=== PATIENT | female | born 1975 | race Caucasian/White ===

== ENCOUNTER 2024-01-26 14:45 | Outpatient (CLI) | payer BC, SELFPAY ==
--- NOTE | ~2024-01-26 | US_ITS ---
EXAMINATION: US pelvic complete w TV DATE: 01/26/2024 16:13 INDICATION: Menorrhagia Comparison:No prior studies for comparison. TECHNIQUE: Multiple transabdominal and endovaginal sonographic images of the pelvis performed. FINDINGS: The uterus measures 10.9 x 4.7 x 6 cm. The endometrial complex measures 23 mm. The right ovary is not visualized. Left ovary measures 3.1 x 3 x 2.5 cm. There is a left ovarian cyst measuring 1.9 cm. There is no free fluid in the pelvis. There are no abnormal masses seen on either side. IMPRESSION: 1. Thickened endometrium measuring 2.3 cm. 2: Left ovarian cyst measuring 1.9 cm. Reviewed, dictated and finalized at location B.
== END 2024-01-26 14:46 ==
PROVIDERS: PCP Obstetrics & Gynecology Gynecology; Visit Provider Obstetrics & Gynecology Gynecology
DX: R93.89 Abnormal findings on diagnostic imaging of other specified body structures (principal); N83.292 Other ovarian cyst, left side; N92.1 Excessive and frequent menstruation with irregular cycle
CPT/HCPCS: 76830; 76856

== ENCOUNTER 2024-12-23 14:03 | Outpatient (CLI) | payer BC, SELFPAY ==
--- NOTE | 2024-12-23 14:13 | ECG_ITS ---
Test Date: 2024-12-23 14:19:50 Measurements Intervals [place] Rate: 62 P: -7 MA: 124 QRS: 48 QRSD: 89 T: 37 QT: 446 QTc: 453 Interpretive Statements SINUS RHYTHM No previous ECG available for comparison Electronically Signed On 12-23-2024 19:14:53 CDT by Dariela Kline
--- OUTSIDE RECORDS SUMMARY | 2024-12-24 14:14 | XMS_ITS | Clinical Summary ---
Author Organization [facility] [employer] Address [address] [place] [address] Care Team Providers Care Stencil Inspector Name Role Phone Unavailable Primary Care Provider Unavailabl e Source Comments [facility] [employer]non-owned Affiliates and Associated Physician Practices is amultiple site organization consisting of ambulatory clinics and hospital sitesin [place], [place], [place] and [place]. This disclosure is being madepursuant to the Care Everywhere program and may not contain all information available regarding this patient. Last updated 18.[facility] [employer] Allergies Active Allergy Reactions Criticality Noted Date Comments [facility]:Acetaminophen+Oxycodone+Tartrazine Rash Medium 02/06/2016 Oxycodone-Acetaminophen Urticaria Medium 07/18/2020 Medications * Be aware that medications may not be up to date on this document. Alwaysverify current medications with the patient. multivitamin (OPURITY) CHEW tablet every 24 hours Active ibuprofen (MOTRIN) 800 MG tablet Take 1 tablet by mouth 2 times daily 60 tablet 5 07/18/2020 Active ibuprofen (MOTRIN) 800 MG tablet Take 1 (one) tablet by mouth every 6 hours as needed for Pain 90 tablet 1 07/24/2021 Active Active Problems Problem Noted Date Diagnosed Date Closed displaced pilon fracture of right tibia 0 03/18/2017 Overview (11/23/2017): ICD-10 update Other fracture of right lowe r leg, initial encounter for closed fracture 01/29/2017 Vitamin D deficiency 01/05/2017 Traumatic hemothorax 04/01/2016 Overview (11/23/2017): Left Acute pain due to trauma 02/07/2016 Multiple injuries 02/07/2016 Hypokalemia 02/07/2016 Hypomagnesemia 02/07/2016 Contusion of one lung 02/06/2016 Open wound of neck 02/06/2016 Cyst of right ovary 02/06/2016 Hemothorax 02/06/2016 Social History Tobacco Use Types Packs/Day Years Used Date Smoking Tobacco: Former Cigarettes Q uit: 09/07/2015 Smokeless Tobacco: Never Alcohol Use Standard Drinks/Week Comments Yes 0 (1 standard drink = 0.6 oz pur e alcohol) Comments No Sex and Gender Information Value Date Recorded Sex Assigned at Not on file Legal Sex Female 5:13 PM SECURITY SUPERVISOR Gender Identity Not on file Sexual Orientation Not on file Last Filed Vital Signs Vital Sign Reading Time Taken Comments Blood Pressure 114/74 01/31/2017 7:29 AM CDT Pulse 80 01/31/2017 7:29 AM CDT Temperature 36.6 C (97.8 F) 01/31/2017 7:29 AM CDT Respiratory Rate 18 01/31/2017 7:29 AM CDT Oxygen Saturation 99% 01/31/2017 7:29 AM CDT Inhaled Oxygen Concentration - - Weight 111.1 kg (245 lb) 07/24/2021 11:12 AM SECURITY SUPERVISOR Height 160 cm (5' 3 ) 07/24/2021 11:12 AM SECURITY SUPERVISOR Body Mass Index 43.4 07/24/2021 11:12 AM SECURITY SUPERVISOR Plan of Treatment Health Maintenance Due Date Last Done Comments COLOGUARD (AGES 45-75) - COLON CA SCREENING 1977 COLON MONITORING 1977 COLONOSCOPY - COLON CA SCREENING 1977 CT COLONOGRAPHY - COLON CA SCREENING 1977 Colorectal Cancer Screening 1977 FIT - COLON CA SCREENING 1977 FLEX SIG - COLON CA SCREENING 1977 LIPID TESTING 1977 MAMMOGRAM 1977 PAP SMEAR 1977 HIV SCREENING 1992 HEPATITIS C SCREENING 11/07/1995 DTAP/TDAP/TD VACCINES (1 - Tdap) 1996 HEPATITIS B VACCINE (1 of 3 - 19+ 3-dose series) 1996 SCREENING FOR DIABETES 07/24/2021 7, 01/30/2017, 01/29/2017, Additional history exists COVID-19 VACCINE ( season) 2024 10/25/2020, 09/27/2020 DEPRESSION SCREENING 08/24/2024 INFLUENZA VACCINE (Season Ended) 2025 05/12/2016 ZOSTER VACCINE (1 of 2) 11/12/2027 HIB VACCINE Aged Out No longer eligi ble based on patient's age to complete this topic HPV VACCINE Aged Out No longer eligi ble based on patient's age to complete this topic MENINGOCOCCAL (Group B) VACCINE SHARED DECISION-MAKING Aged Out No longer eligible based on patient's age to complete this topic MENINGOCOCCAL GROUPS A/C/Y/W VACCINE Aged Out No longer eligible based on patient's age to complete this topic PNEUMOCOCCAL VACCINE Aged Out No long er eligible based on patient's age to complete this topic Procedures Procedure Name Priority Date/Time Associated Diagnosis Comments BASIC METABOLIC PANEL (CALCIUM TOTAL) Routine 01/31/2017 4:19 AM CDT from Last 3 Months or Most Recently Relevant to Health Maintenance Results * BASIC METABOLIC PANEL (CALCIUM TOTAL) (01/31/2017 4:19 AM CDT) BUN 11 7 - 26 mg/dL [facility] Creatinine 0.6 0.6 - 1.2 mg/dL [facility] Sodium 138 136 - 145 mmol/L [facility] Potassium 4.0 3.5 - 4.5 mmol/L [facility] Chloride 101 98 - 107 mmol/L [facility] CO2 27 22 - 29 mmol/L [facility] Glucose 94 70 - 115 mg/dL [facility] Calcium 8.5 8.4 - 10.2 mg/dL [facility] Anion Gap 14 8 - 18 [facility] BUN/Creatinine Ratio 18 7 - 23 [facility] Osmolality Calculated 285 270 - 300 mOsm/kg [facility] eGFR >60 >60 mL/min/1.7 3 m2 [facility] Blood specimen (specimen) BLOOD SPECIMEN / Unknown 01/31/2017 4:19 AM CDT 01/31/2017 4:43 AM CDT us Johnnie Montes De Oca MD LAB - CHEMISTRY ORDERABLES Yoly carmina Result [facility] [address] [place] [address], [facility] [phone] from Last 3 Months or Most Recently Relevant to Health Maintenance Insurance [facility] Address: [place] [address] MEDICAID - OUT OF STATE ANTH
== END 2024-12-23 14:04 | disposition home or self-care (01) ==
LOC: ANHCARD 14:05
PROVIDERS: Visit Provider Anesthesiology
DX: F17.210 Nicotine dependence, cigarettes, uncomplicated (principal); Z01.818 Encounter for other preprocedural examination
CPT/HCPCS: 93005

== ENCOUNTER 2024-12-24 10:43 | Outpatient (CLI) | payer BC, SELFPAY ==
[2024-12-24 11:13] LABS: Hematocrit 22.1 % (37.0-47.0)
[2024-12-24 11:39] LABS: Hemoglobin 6.1 g/dL (12.0-15.0)
--- OUTSIDE RECORDS SUMMARY | 2024-12-24 16:22 | XMS_ITS | Clinical Summary ---
Author Organization [facility] [employer] Address [address] [place] [address] Care Team Providers Care Olive Grower Name Role Phone Unavailable Primary Care Provider Unavailabl e Source Comments [facility] [employer],non-owned Affiliates and Associated Physician Practices is amultiple site organization consisting of ambulatory clinics and hospital sitesin [place], [place], [place] and [place]. This disclosure is being madepursuant to the Care Everywhere program and may not contain all information available regarding this patient. Last updated 18.[facility] [employer] Allergies Active Allergy Reactions Criticality Noted Date Comments [facility]:Acetaminophen+Oxycodone+Tartrazine Rash Medium 02/06/2016 Oxycodone-Acetaminophen Urticaria Medium 07/18/2020 [...] on file Legal Sex Female 5:13 PM AQUA AMMONIA OPERATOR Gender Identity Not on file Sexual Orientation [...] 111.1 kg (245 lb) 07/24/2021 11:12 AM AQUA AMMONIA OPERATOR Height 160 cm (5' 3 ) 07/24/2021 11:12 AM AQUA AMMONIA OPERATOR Body Mass Index 43.4 07/24/2021 11:12 AM AQUA AMMONIA OPERATOR Plan of Treatment Health Maintenance Due Date [...] CDT) BUN 11 7 - 26 mg/dL [facility] Creatinine 0.6 0.6 - 1.2 mg/dL [facility] Sodium 138 136 - 145 mmol/L [facility] Potassium 4.0 3.5 - 4.5 mmol/L [facility] Chloride 101 98 - 107 mmol/L [facility] CO2 27 22 - 29 mmol/L [facility] Glucose 94 70 - 115 mg/dL [facility] Calcium 8.5 8.4 - 10.2 mg/dL [facility] Anion Gap 14 8 - 18 [facility] BUN/Creatinine Ratio 18 7 - 23 [facility] Osmolality Calculated 285 270 - 300 mOsm/kg [facility] eGFR >60 >60 mL/min/1.7 3 m2 [facility] Blood specimen (specimen) BLOOD SPECIMEN / Unknown 01/31/2017 4:19 AM CDT 01/31/2017 4:43 AM CDT us Johnnie Montes De Oca MD LAB - CHEMISTRY ORDERABLES Yoly carmina Result [facility] [address] [place] [address], [facility] [phone] from Last 3 Months or Most Recently Relevant to Health Maintenance Insurance ANTH MEDICAID - OUT OF STATE ANTH
== END 2024-12-24 10:44 | disposition home or self-care (01) ==
LOC: ANHLAB 10:44
PROVIDERS: PCP Internal Medicine; Visit Provider Anesthesiology
DX: Z01.818 Encounter for other preprocedural examination (principal); D64.9 Anemia, unspecified
CPT/HCPCS: 36415; 85014; 85018; 86850; 86900; 86901

== ENCOUNTER 2024-12-25 10:51 | Emergency (ER) | payer BC, SELFPAY ==
[2024-12-25 10:52] VITALS: BP 135/64; PULSE 74; RESP 14; TEMP 36.6; O2SAT 100
--- OUTSIDE RECORDS SUMMARY | 2024-12-25 10:53 | XMS_ITS | Clinical Summary ---
Author Organization [facility] [employer] Address [address] [place] [address] Care Team Providers Care Audio Video Mechanic Name Role Phone Unavailable Primary Care Provider Unavailabl e Source Comments [facility] [employer],non-owned Affiliates and Associated Physician Practices is amultiple site organization consisting of ambulatory clinics and hospital sitesin [place], [place], [place] and [place]. This disclosure is being madepursuant to the Care Everywhere program and may not contain all information available regarding this patient. Last updated 18.[facility] [employer] Allergies Active Allergy Reactions Criticality Noted Date Comments [facility]:Acetaminophen+Oxycodone+Tartrazine Rash Medium 02/06/2016 Oxycodone-Acetaminophen Urticaria Medium [...] on file Legal Sex Female 5:13 PM PLATEN PRESS FEEDER Gender Identity Not on file Sexual Orientation [...] 111.1 kg (245 lb) 07/24/2021 11:12 AM PLATEN PRESS FEEDER Height 160 cm (5' 3 ) 07/24/2021 11:12 AM PLATEN PRESS FEEDER Body Mass Index 43.4 07/24/2021 11:12 AM PLATEN PRESS FEEDER Plan of Treatment Health Maintenance Due Date [...] CDT) BUN 11 7 - 26 mg/dL [facility] Creatinine 0.6 0.6 - 1.2 mg/dL [facility] Sodium 138 136 - 145 mmol/L [facility] Potassium 4.0 3.5 - 4.5 mmol/L [facility] Chloride 101 98 - 107 mmol/L [facility] CO2 27 22 - 29 mmol/L [facility] Glucose 94 70 - 115 mg/dL [facility] Calcium 8.5 8.4 - 10.2 mg/dL [facility] Anion Gap 14 8 - 18 [facility] BUN/Creatinine Ratio 18 7 - 23 [facility] Osmolality Calculated 285 270 - 300 mOsm/kg [facility] eGFR >60 >60 mL/min/1.7 3 m2 [facility] Blood specimen (specimen) BLOOD SPECIMEN / Unknown 01/31/2017 4:19 AM CDT 01/31/2017 4:43 AM CDT us Johnnie Montes De Oca MD LAB - CHEMISTRY ORDERABLES Yoly carmina Result [facility] [address] [place] [address], [place] [phone] from Last 3 Months or Most Recently Relevant to Health Maintenance Insurance ANTH MEDICAID - OUT OF STATE ANTH
--- NOTE | 2024-12-25 11:55 | ED_ITS ---
HPI - General Adult General Chief complaint: Recheck/Abnormal Lab/Rx Stated complaint: need blood transfusion Time Seen by Provider: 12/25/24 11:53 Source: patient Mode of arrival: ambulatory Limitations: no limitations History of Present Illness HPI narrative: Patient had a blood workup yesterday, preop for uterine ablation tomorrow. Was told to go to the ED for 1 unit of blood transfusion. Patient is telling me that she been having vaginal bleed since October 2024, the bleeding is not different than before, varies. Patient denies any fever, chills, nausea, vomiting, lightheadedness, dizziness. Patient drove herself to the emergency room. Related Data Home Medications ?Medication ?Instructions ?Recorded ?Confirmed ?Last Taken ?Type fluoxetine 20 mg capsule 20 mg PO HS 12/23/24 12/23/24 Unknown History medroxyprogesterone 150 mg/mL 150 mg IM [id number] 12/23/24 12/23/24 Unknown History intramuscular syringe risankizumab-rzaa 150 mg/mL 150 mg subcut [id number] 12/23/24 12/23/24 Unknown History subcutaneous pen injector (Skyrizi) Allergies Allergy/AdvReac Type Severity Reaction Status Date / Time oxycodone (From Percocet) AdvReac Mild Unknown Verified 12/25/24 13:03 Review of Systems 2 Review of Systems: All systems reviewed & are unremarkable except as noted in HPI and below PMFSH Surgical History Surgical History History of section Social History Social History Smoking packs per day: 2 Smoking cigarettes per day: 40.0 Years smoked: 27 Smoking pack-years: 54.00 Smoking status: Former smoker Tobacco type: cigarettes and e-cigarettes/vaping Smoking end date: 12/24/15 Additional smoking assessment comments: Vaping currently Alcohol intake: current Substance use: former Substance use type: methamphetamine Last use: clean 5 years 4 months. Living arrangements: with family Gender identity (if verbalized by the patient): Female Spiritual care concerns: No Exam 2 Narrative: General appearance: Well-developed, well-nourished Skin: Pale Head: Normocephalic, nontraumatic Eyes: Clear conjunctiva ENT: Oropharynx normal, ears normal, nose normal Neck: Supple, nontender Chest and respiratory: Airway patent, no respiratory distress, no accessory muscle use Heart: Regular rate/rhythm Abdomen: Soft, nontender, no organomegaly, quiet bowel sounds Vascular: Normal peripheral pulses, normal capillary refill. Musculoskeletal: Normal range of motion, nontender back Neurologic: Alert and oriented ?3, PHYSICIAN COMPENSATION ANALYST is normal as tested, no gross motor deficit Course Vital Signs Vital signs: Vital Signs Temperature 36.6 C 12/25/24 10:52 Pulse Rate 74 12/25/24 10:52 Respiratory Rate 14 12/25/24 10:52 Blood Pressure 135/64 12/25/24 10:52 Pulse Oximetry 100 12/25/24 10:52 Temperature 36.6 C 12/25/24 14:10 Pulse Rate 67 12/25/24 14:10 Respiratory Rate 15 12/25/24 14:10 Blood Pressure 128/66 12/25/24 14:10 Pulse Oximetry 99 12/25/24 14:10 Medical Decision Making MDM Narrative Medical decision making narrative: Differential diagnosis include anemia secondary to vaginal bleed Patient is scheduled for uterine ablation tomorrow, Hemoglobin today is 7.0, Patient received 1 unit of blood in the ED prior to discharge. Vital Signs Vital Signs: Vital Signs Temperature 36.6 C 12/25/24 10:52 Pulse Rate 74 12/25/24 10:52 Respiratory Rate 14 12/25/24 10:52 Blood Pressure 135/64 12/25/24 10:52 Pulse Oximetry 100 12/25/24 10:52 Temperature 36.6 C 12/25/24 14:10 Pulse Rate 67 12/25/24 14:10 Respiratory Rate 15 12/25/24 14:10 Blood Pressure 128/66 12/25/24 14:10 Pulse Oximetry 99 12/25/24 14:10 Lab Data 12/25/24 11:59 12/25/24 11:59 Labs: Lab Results 12/24/24 12/25/24 Range/Units 10:55 11:59 WBC 6.8 (4.5-10.0) K/mm3 RBC 3.40 L (4.2-5.4) M/mm3 Hgb 7.0 L (12.0-15.0) g/dL Hct 25.0 L (37.0-47.0) % MCV 73.5 L (80-100) fl MCH 20.6 L (26-34) pg MCHC 28.0 L (32-36) g/dl RDW 16.1 H (11.5-14.5) % Plt Count 268 (150-375) k/mm3 MPV 12.7 H (7.4-10.4) fl Immature Gran % (Auto) 0.3 (0-0.5) % Neut % (Auto) 71.8 (45.5-73.1) % Lymph % (Auto) 18.9 (18.3-44.2) % [place] % (Auto) 6.0 (2.6-8.5) % Eos % (Auto) 2.3 (0-4.4) % Baso % (Auto) 0.7 (0.2-1.2) % Lymph # (Auto) 1.29 (0.9-3.2) K/mm3 [place] # (Auto) 0.4 (0.1-0.6) K/mm3 Eos # (Auto) 0.2 (0-0.3) K/mm3 Baso # (Auto) 0.1 (0.0-0.1) K/mm3 Abs Immat Gran (auto) 0.02 (0.00-0.031) K/mm3 Absolute Neuts (auto) 4.9 (1.3-6.7) K/mm3 Absolute Nucleated RBC 0.000 (0.0-0.012) K/mm3 Band Neutrophils % Not Reportable Nucleated RBC % 0.0 (0.0-0.2) % Platelet Estimate Adequate (Adequate) Hypochromasia 2+ Anisocytosis 2+ Target Cells 1+ Ovalocytes 1+ Schistocytes None seen Sodium 141 (137-145) mmol/L Potassium 3.8 (3.4-5.0) mmol/L Chloride 105 (98-107) mmol/L Carbon Dioxide 25 (22-30) mmol/L Anion Gap 11 (4-12) mmol/L BUN 9 (7-17) mg/dL Creatinine 0.56 L (0.7-1.0) mg/dL Estim Creat Clear Calc 95 ml/min Estimated GFR > 60 (59 - ) Glucose 97 (65-110) mg/dL Calcium 9.0 (8.4-10.2) mg/dL Crossmatch See Detail Critical Care Time Critical Care Time Critical Care Time: No Discharge Plan Discharge Clinical Impression: DUB (dysfunctional uterine bleeding), Anemia Patient Disposition: Home Condition: Stable Instructions: Abnormal (Dysfunctional) Uterine Bleeding (ED), Anemia (ED) Additional Instructions: Return if symptoms are worsening , get your uterine ablation tomorrow , take Tylenol as as needed for aches and pain, continue home medications. Patient Language: Sinhala Prescriptions: No Action Skyrizi 150 mg/mL pen injector 150 mg SUBCUT [id number] fluoxetine 20 mg capsule 20 mg PO HS medroxyprogesterone 150 mg/mL syringe 150 mg IM [id number] Follow-up/Referrals: Antolin Powers MD [Primary Care Provider] -
[2024-12-25 11:57] VITALS: RESP 16
[2024-12-25 12:06] LABS: Basophils Absolute Auto 0.1 K/mm3 (0.0-0.1); Basophils Percent Auto 0.7 % (0.2-1.2); Eosinophils Absolute Auto 0.2 K/mm3 (0-0.3); Eosinophils Percent Auto 2.3 % (0-4.4); Immature Granulocyte Absolute 0.02 K/mm3 (0.00-0.031); Immature Granulocyte Percent A 0.3 % (0-0.5); Lymphocytes Absolute Auto 1.29 K/mm3 (0.9-3.2); Lymphocytes Percent Auto 18.9 % (18.3-44.2); Mean Corpuscular Hemoglobin 20.6 pg (26-34); Mean Corpuscular Volume 73.5 fl (80-100); Mean Platelet Volume 12.7 fl (7.4-10.4); Monocytes Absolute Auto 0.4 K/mm3 (0.1-0.6); Neutrophils Absolute Auto 4.9 K/mm3 (1.3-6.7); Neutrophils Percent Auto 71.8 % (45.5-73.1); Platelet Count Result 268 k/mm3 (150-375); Red Cell Distribution Width 16.1 % (11.5-14.5); White Blood Count 6.8 K/mm3 (4.5-10.0)
--- OUTSIDE RECORDS SUMMARY | 2024-12-25 12:08 | XMS_ITS | Clinical Summary ---
Author Organization [facility] [employer] Address [address] [place] [address] Care Team Providers Care Service Desk Manager Name Role Phone Unavailable Primary Care Provider Unavailabl e Source Comments [facility] [employer],non-owned Affiliates and Associated Physician Practices is amultiple site organization consisting of ambulatory clinics and hospital sitesin [place], [place], [place] and [place]. This disclosure is being madepursuant to the Care Everywhere program and may not contain all information available regarding this patient. Last updated 18.[facility] [employer] Allergies Active Allergy Reactions Criticality Noted Date Comments [facility]:Acetaminophen+Oxycodone+Tartrazine Rash Medium 02/06/2016 Oxycodone-Acetaminophen Urticaria Medium [...] on file Legal Sex Female 5:13 PM WAX MACHINE OPERATOR Gender Identity Not on file Sexual [...] 111.1 kg (245 lb) 07/24/2021 11:12 AM WAX MACHINE OPERATOR Height 160 cm (5' 3 ) 07/24/2021 11:12 AM WAX MACHINE OPERATOR Body Mass Index 43.4 07/24/2021 11:12 AM WAX MACHINE OPERATOR Plan of Treatment Health Maintenance Due [...] CDT) BUN 11 7 - 26 mg/dL [facility] Creatinine 0.6 0.6 - 1.2 mg/dL [facility] Sodium 138 136 - 145 mmol/L [facility] Potassium 4.0 3.5 - 4.5 mmol/L [facility] Chloride 101 98 - 107 mmol/L [facility] CO2 27 22 - 29 mmol/L [facility] Glucose 94 70 - 115 mg/dL [facility] Calcium 8.5 8.4 - 10.2 mg/dL [facility] Anion Gap 14 8 - 18 [facility] BUN/Creatinine Ratio 18 7 - 23 [facility] Osmolality Calculated 285 270 - 300 mOsm/kg [facility] eGFR >60 >60 mL/min/1.7 3 m2 [facility] Blood specimen (specimen) BLOOD SPECIMEN / Unknown 01/31/2017 4:19 AM CDT 01/31/2017 4:43 AM CDT us Johnnie Montes De Oca MD LAB - CHEMISTRY ORDERABLES Yoly carmina Result [facility] [address] [place] [address], [facility] [phone] from Last 3 Months or Most Recently Relevant to Health Maintenance Insurance ANTH MEDICAID - OUT OF STATE ANTH
[2024-12-25 12:15] LABS: Anion Gap 11 mmol/L (4-12); Blood Urea Nitrogen 9 mg/dL (7-17); Carbon Dioxide 25 mmol/L (22-30); Chloride 105 mmol/L (98-107); Estimated CRCL calculation 95 ml/min; Estimated Glomerular Filt Rate > 60; Glucose 97 mg/dL (65-110); Potassium 3.8 mmol/L (3.4-5.0); Sodium 141 mmol/L (137-145)
[2024-12-25 12:37] LABS: Anisocytosis 2+; Hypochromasia 2+; Platelet Estimate Adequate (Adequate)
[2024-12-25 12:38] LABS: Ovalocytes 1+; Target Cells 1+
[2024-12-25 12:39] LABS: Schistocytes None Seen
[2024-12-25 12:53] VITALS: BP 118/69; PULSE 61; RESP 14; TEMP 36.7; O2SAT 100
[2024-12-25] MEDS: TUBING, BLOOD SET 1 EACH XX (13:02)
[2024-12-25] MEDS: SODIUM CHLORIDE 0.9% IV 250 ML 30 ML IV CONT (13:02)
[2024-12-25 13:10] VITALS: BP 122/70; PULSE 68; RESP 15; TEMP 36.7; O2SAT 100
[2024-12-25 14:02] VITALS: BP 129/61; PULSE 89; RESP 20; TEMP 36.6; O2SAT 100
[2024-12-25 14:10] VITALS: BP 128/66; PULSE 67; RESP 15; TEMP 36.6; O2SAT 99
== END 2024-12-25 15:57 | disposition home or self-care (01) ==
PROVIDERS: Emergency Provider Emergency Medicine; PCP Internal Medicine
DX: N93.8 Other specified abnormal uterine and vaginal bleeding (principal); D64.9 Anemia, unspecified; F17.290 Nicotine dependence, other tobacco product, uncomplicated
CPT/HCPCS: 36415; 36430; 80048; 85025; 86923; 96360; 96361; 99285; J7050; P9016

== ENCOUNTER 2024-12-26 01:35 | Day surgery (SDC) | payer BC, SELFPAY ==
[2024-12-23 09:17] VITALS: BMI 27.5
--- NOTE | 2024-12-23 09:26 | PC.NURSE ---
Report to the Outpatient Waiting Room, entrance under the green pavilion located off [facility], at time _0830_ on date _[id number]_. Planned Procedure Time: _1030_.? Time changes happen often and if your time is changed the preop area will call you the afternoon before. - You and your visitor will be asked to self-screen and do not enter if you have any COVID symptoms. Please call surgeon if you need to reschedule. - A mask is optional within the hospital at this time. Patients may have clear liquids (water, carbonated beverages, clear teas, apple juice) until 3 hours prior to surgery with a maximum of 20 ounces. - No food from midnight until time of surgery and no smoking, or chewing tobacco (or any form of nicotine). No chewing gum, candy or mints. Take only the following medications with a SIP of water on the morning of surgery: ___None__ DO NOT STOP ANY OF YOUR OTHER PRESCRIPTION MEDICATIONS PRIOR TO SURGERY EXCEPT THE FOLLOWING Hold all vitamins and supplements for 3 days per anesthesiologist. Medications to discontinue per physician Date to take last dose Please no make-up, nail congolese, hairspray, perfume, deodorant, or body powder the day of surgery.? No jewelry (including any body piercings) or valuables the day of surgery, leave them at home.? Please take a shower or bath the night before, or the morning of, surgery with an antibacterial soap.? Wear comfortable, loose fitting clothing. - Jewelry must be removed prior to entering the operating room.? Rings and piercings that are not removed may be cut off. - The hospital will not accept responsibility for valuables.? - Please leave all valuables, including medications, at home the day of surgery. If you are going home after surgery, a licensed helper driver must drive you home.? - NO public transportation without another adult if you receive anesthesia. - We recommend that an adult stay with you for 24 hours following discharge. - We also recommend that you do not drive, make important decision, drink alcoholic beverages, or take any drugs that were not prescribed by your health care provider for at least 24 hours after your discharge time. Follow any additional instructions given to you from your surgeon. Telephone instructions given to __Marlen__and asked if any additional questions and then verbalized understanding. Patient advised to call surgeon office or pre surgery nurse liaison [phone] if any additional questions.
[2024-12-26] VITALS (7 sets, daily range): BP systolic 119–143; BP diastolic 48–80; PULSE 61–77; RESP 12–18; TEMP 36.2–36.6; O2SAT 100; BMI 27.7
--- OUTSIDE RECORDS SUMMARY | 2024-12-26 01:39 | XMS_ITS | Clinical Summary ---
Author Organization [facility] [employer] Address [address] [place] [address] Care Team Providers Care Lacrosse Player Name Role Phone Unavailable Primary Care Provider Unavailabl e Source Comments [facility] [employer],non-owned Affiliates and Associated Physician Practices is amultiple site organization consisting of ambulatory clinics and hospital sitesin [place], [place], [place] and [place]. This disclosure is being madepursuant to the Care Everywhere program and may not contain all information available regarding this patient. Last updated 18.[facility] [employer] Allergies Active Allergy Reactions Criticality Noted Date Comments [facility]:Acetaminophen+Oxycodone+Tartrazine Rash Medium 02/06/2016 Oxycodone-Acetaminophen Urticaria Medium [...] on file Legal Sex Female 5:13 PM HUMAN RESOURCE PROFESSIONAL Gender Identity Not on file Sexual Orientation [...] 111.1 kg (245 lb) 07/24/2021 11:12 AM HUMAN RESOURCE PROFESSIONAL Height 160 cm (5' 3 ) 07/24/2021 11:12 AM HUMAN RESOURCE PROFESSIONAL Body Mass Index 43.4 07/24/2021 11:12 AM HUMAN RESOURCE PROFESSIONAL Plan of Treatment Health Maintenance Due Date [...] CDT) BUN 11 7 - 26 mg/dL [facility] Creatinine 0.6 0.6 - 1.2 mg/dL [facility] Sodium 138 136 - 145 mmol/L [facility] Potassium 4.0 3.5 - 4.5 mmol/L [facility] Chloride 101 98 - 107 mmol/L [facility] CO2 27 22 - 29 mmol/L [facility] Glucose 94 70 - 115 mg/dL [facility] Calcium 8.5 8.4 - 10.2 mg/dL [facility] Anion Gap 14 8 - 18 [facility] BUN/Creatinine Ratio 18 7 - 23 [facility] Osmolality Calculated 285 270 - 300 mOsm/kg [facility] eGFR >60 >60 mL/min/1.7 3 m2 [facility] Blood specimen (specimen) BLOOD SPECIMEN / Unknown 01/31/2017 4:19 AM CDT 01/31/2017 4:43 AM CDT us Johnnie Montes De Oca MD LAB - CHEMISTRY ORDERABLES Yoly carmina Result [facility] [address] [place] [address], [facility] [phone] from Last 3 Months or Most Recently Relevant to Health Maintenance Insurance ANTH MEDICAID - OUT OF STATE ANTH
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
--- NOTE | 2024-12-26 07:56 | WPDHPUPDATE1 ---
History and Physical Update Update Date/Time: 12/26/24 07:56 History and Physical has been reviewed, including an updated exam of the patient. There are NO changes in the patient's condition. Risks, benefits, and alternatives have been discussed and questions answered. Patient agrees to proceed with procedure.
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
[2024-12-26] MEDS: LACTATED RINGERS 1,000 ML 30 ML IV CONT ×2 (09:10→11:16)
[2024-12-26] MEDS: KETOROLAC 15 MG/ML VIAL (*BKC) IV PUSH (09:43)
[2024-12-26] MEDS: ACETAMINOPHEN 500 MG TABLET 1000 MG PO (09:43)
--- NOTE | 2024-12-26 11:17 | W.PM.PROC2 ---
Procedure Note - Detailed Date of Procedure 12/26/24 Pre-op Diagnosis Menorrhagia with anemia Requests sterilization Post-op Diagnosis Same Procedure Performed Laparoscopic bilateral partial salpingectomy Hysteroscopy with Cristal endometrial ablation Surgeon Jessica Kenney MD Anesthesia General Findings Laparoscopic findings: Lower abdomen and pelvis have extensive adhesions. Omentum was adherent to the anterior abdominal wall in thick areas in the midline from just below the umbilicus to the bladder. Bilateral tubes and ovaries are scarred to the pelvic sidewall. Uterus has bowel and bladder adhesions. Hysteroscopic findings: uterus is 9cm and appears grossly secretory Description of Procedure The patient was taken to the operating room and placed under general anesthesia in the dorsal lithotomy position. She was prepped and draped in the usual sterile fashion. [place] speculum was placed in the vagina and the cervix grasped on the anterior lip with a tenaculum. The acorn manipulator was placed. The speculum was removed. Attention was turned to the abdomen where a vertical skin incision was made at the base of the umbilicus. The abdomen was tented with towel clamps. The Veress needle was placed and the opening pressure pressure was 4mmHg. Water drop test was normal. Pneumoperitoneum was obtained using CO2 to a patient pressure of 15mmHg. The Veress needle was removed and the 5mm Optiview trocar was placed again while tenting the abdomen with towel clamps. Intra-abdominal placement was confirmed with the laparoscope. The patient was placed in Trendelenburg. A extensive adhesions are noted. Manipulating the camera I am able to get to the left and right sides of the scar tissue into the pelvis. The right tube and ovary are visible above the pelvic side wall scar tissue and are partially adherent to the pelvic sidewall. The left tube and ovary are more difficult to get to with the camera. Once visualized the left tube was noted to be very adherent to the ovary and the pelvic sidewall. There was a midportion of the tube that is mostly free but was somewhat adherent to the pelvic sidewall. Decision was made to put 2 trocars on the right under direct visualization 5mm trocars were placed in the right lower quadrant. Have the omental adhesions in the right lower quadrant were grasped with the LigaSure, cauterized, and cut. This was very tedious process and after removing the 1st layer of scar tissue a deeper 2nd layer that was thicker was noted. Decision was made to take out the right tube starting at its fimbriated end as much as possible and to put 2 ports in the left lower quadrant and then take out the midportion of the left tube. The right fimbriated end was grasped with a grasper and using the LigaSure the adhesions and blood supply are cauterized and cut. Once the scar tissue became more dense, the tube was cross clamped with the LigaSure, cauterizing and cutting the tube. This portion of the tube was removed through the lower port. These ports were then removed. No leaking was noted of CO2. The same trocars were utilized to place in the left lower quadrant under direct visualization. The left midportion of the tube was grasped with an atraumatic grasper and using the LigaSure the tube is crossclamped, cauterized, and cut. Approximately 1cm of the mesosalpinx is free and able to be cauterized and cut. The tube was then crossclamped at the end of the section, cauterized and cut. The portion of tube is removed through the lower port. Inspection reveals approximately 1cm portion of tube. Good hemostasis is noted at all sites. The instruments were then removed from the abdomen. Pneumoperitoneum was reduced. Skin incisions were closed using 4-0 nylon in an interrupted fashion. Sterile bandages are applied. Attention was returned to the vagina. A bivalve speculum was returned to the vagina and the acorn manipulator removed. The uterus is sounded to 9cm. The diagnostic hysteroscope was placed and with no significant abnormalities was removed. The ablation device is opened. The cervix was serially dilated to an 8 Hegar. The Cristal device is placed. The setting was on 6 for length. The cavity assessment per passed on the 1st attempt. The treatment cycle lasted the full 2minutes. The Cristal device was removed. The hysteroscope was replaced and good ablation effect is noted. All instruments are removed. The patient was awakened from anesthesia and taken to recovery in stable condition. Instrument, sponge, and needle counts are correct per the OR staff. Estimated Blood Loss 5 Drains No Packing No Pathology Yes (Right tube from the fimbriated and left tube midsection) Complications No immediate complications Condition Stable Disposition PACU
[2024-12-26 11:57] LABS: BEDSIDEPREGUCG Negative (Negative)
== END 2024-12-26 13:10 | disposition home or self-care (01) ==
PROVIDERS: Anesthesiology; PCP Internal Medicine; Visit Provider Obstetrics & Gynecology Gynecology
PROC: 0UDB8ZZ Extraction of Endometrium, Via Natural or Artificial Opening Endoscopic (ICD-10-PCS; CPT 58558; principal; 2024-12-26 10:30)
DX: Z30.2 Encounter for sterilization (principal); N83.8 Other noninflammatory disorders of ovary, fallopian tube and broad ligament; N73.6 Female pelvic peritoneal adhesions (postinfective); G89.18 Other acute postprocedural pain; D64.9 Anemia, unspecified; F17.290 Nicotine dependence, other tobacco product, uncomplicated; L40.9 Psoriasis, unspecified; Z79.85 Long-term (current) use of injectable non-insulin antidiabetic drugs; Z98.890 Other specified postprocedural states
CPT/HCPCS: 58661; 58563; 36415; 85014; 85018; 88302; A9270; J1100; J1885; J2003; J2250; J2405; J2704; J3010; J7120